=== PATIENT | female | born 1980 | race Caucasian/White ===

== ENCOUNTER → 2017-10-15 | Outpatient (CLI) | payer BC ==
--- NOTE | 2017-10-15 08:26 | MM ---
Reason for exam: additional evaluation requested from prior study. Last mammogram was performed 4 years ago. History: Family history of breast cancer in mother at age 46 and breast cancer in paternal grandmother at age 70. Benign US biopsy breast VAD LT of the left breast, October 07, 2013. Benign US biopsy breast VAD RT of the right breast, October 07, 2013. Benign US right guided VAD of the right breast, November 01, 2010. Excisional biopsy of the left breast, August 10, 2006. Benign ultrasound-guided core biopsy of the left breast, December 05, 2002. Core biopsy of the left breast. Took hormonal contraceptives for 4 years beginning at age 14. Physical Findings: Nurse Summary: 1cm nodule in the right breast at 12 o'clock (nurse flo). MG Diagnostic Mammo w CAD AYANNA Bilateral CC and MLO view(s) were taken. XCCL view(s) were taken of the right breast. Prior study comparison: October 07, 2013, right breast MG diagnostic mammo RT w CAD. October 07, 2013, left breast MG diagnostic mammo LT w CAD. The breast tissue is extremely dense which could obscure a lesion on mammography. No suspicious abnormality. Post biopsy change bilaterally. These results were verbally communicated with the patient and result sheet given to the patient on 10/15/17. ASSESSMENT: Benign, BI-RAD 2 RECOMMENDATION: Routine screening mammogram of both breasts in 1 year.
== END ==
LOC: RADMAMWWP 06:57
PROVIDERS: ATTEND Family Medicine
DX: N63.0 Unspecified lump in unspecified breast (principal)
CPT/HCPCS: 77066

== ENCOUNTER → 2018-03-18 | Outpatient (CLI) | payer BC | END | disposition home or self-care (01) | LOC: RADECHMAIN 12:19 | PROVIDERS: ATTEND Family Medicine | DX: I49.3 Ventricular premature depolarization (principal); R00.0 Tachycardia, unspecified | CPT/HCPCS: 93225; 93226 ==

== ENCOUNTER → 2018-12-10 | Outpatient (CLI) | payer BC ==
--- NOTE | 2018-12-11 10:39 | MM ---
Reason for exam: screening (asymptomatic). Last mammogram was performed 1 year and 2 months ago. History: Family history of breast cancer in mother at age 46 and breast cancer in paternal grandmother at age 70. Benign US biopsy breast VAD LT of the left breast, October 07, 2013. Benign US biopsy breast VAD RT of the right breast, October 07, 2013. Benign US right guided VAD of the right breast, November 01, 2010. Excisional biopsy of the left breast, August 10, 2006. Benign ultrasound-guided core biopsy of the left breast, December 05, 2002. Core biopsy of the left breast. Took hormonal contraceptives for 4 years beginning at age 14. Physical Findings: A clinical breast exam by your physician is recommended on an annual basis and results should be correlated with mammographic findings. MG 3D Screening Mammo W/Cad Bilateral CC and MLO view(s) were taken. Prior study comparison: October 15, 2017, bilateral MG diagnostic mammo w CAD AYANNA. October 07, 2013, right breast MG diagnostic mammo RT w CAD. The breast tissue is extremely dense which could obscure a lesion on mammography. No suspicious abnormality. Right medial asymmetry at middle depth appears as overlap on 3D. Right biopsy marker anterior to a stable mass in the central upper right breast at posterior depth. Second right biopsy marker upper inner quadrant. No significant changes when compared with prior studies. ASSESSMENT: Benign, BI-RAD 2 RECOMMENDATION: Routine screening mammogram of both breasts in 1 year.
== END | disposition home or self-care (01) ==
LOC: RADMAMWWP 06:51
PROVIDERS: ATTEND Family Medicine
DX: Z12.31 Encounter for screening mammogram for malignant neoplasm of breast (principal)
CPT/HCPCS: 77063; 77067

== ENCOUNTER → 2020-04-16 | Outpatient (CLI) | payer BC ==
--- NOTE | 2020-04-20 09:02 | MM ---
Reason for exam: screening (asymptomatic). Last mammogram was performed 1 year and 4 months ago. History: Family history of breast cancer in mother at age 46 and breast cancer in paternal grandmother at age 70. Benign US biopsy breast VAD LT of the left breast, October 07, 2013. Benign US biopsy breast VAD RT of the right breast, October 07, 2013. Benign US right guided VAD of the right breast, November 01, 2010. Excisional biopsy of the left breast, August 10, 2006. Benign ultrasound-guided core biopsy of the left breast, December 05, 2002. Core biopsy of the left breast. Took hormonal contraceptives for 4 years beginning at age 14. Physical Findings: A clinical breast exam by your physician is recommended on an annual basis and results should be correlated with mammographic findings. MG 3D Screening Mammo W/Cad Bilateral CC and MLO view(s) were taken. Prior study comparison: December 10, 2018, bilateral MG 3d screening mammo w/cad. October 15, 2017, bilateral MG diagnostic mammo w CAD AYNANA. The breast tissue is extremely dense which could obscure a lesion on mammography. Previous mammotome biopsy in the right breast x 2 and in the left breast x 1. Post excisional change anterior left breast. Lateral posterior left CC mass has a reinform appearance on 3D, suspect benign intramammary node. Precautionary 6 month follow up as it was not clearly seen previously. ASSESSMENT: Probably benign, BI-RAD 3 RECOMMENDATION: Follow-up diagnostic mammogram of the left breast in 6 months.
== END | disposition home or self-care (01) ==
LOC: RADMAMWWP 16:34
PROVIDERS: ATTEND Family Medicine
DX: Z12.31 Encounter for screening mammogram for malignant neoplasm of breast (principal)
CPT/HCPCS: 77063; 77067

== ENCOUNTER → 2021-06-15 | Outpatient (CLI) | payer OTHER ==
--- NOTE | 2021-06-15 10:20 | MM ---
Reason for exam: clinical finding. Last mammogram was performed 1 year and 2 months ago. History: Family history of breast cancer in mother at age 46 and breast cancer in paternal grandmother at age 70. Benign US biopsy breast VAD LT of the left breast, October 07, 2013. Benign US biopsy breast VAD RT of the right breast, October 07, 2013. Benign US right guided VAD of the right breast, November 01, 2010. Excisional biopsy of the left breast, August 10, 2006. Benign ultrasound-guided core biopsy of the left breast, December 05, 2002. Core biopsy of the left breast. Took hormonal contraceptives for 4 years beginning at age 14. Indicated problem(s): lump or thickening in both breasts. Physical Findings: A clinical breast exam by your physician is recommended on an annual basis and results should be correlated with mammographic findings. MG 3D Diag Mammo W/Cad AYANNA Bilateral CC and MLO view(s) were taken. Prior study comparison: April 16, 2020, bilateral MG 3d screening mammo w/cad. December 10, 2018, bilateral MG 3d screening mammo w/cad. The breast tissue is heterogeneously dense. This may lower the sensitivity of mammography. Previous mammotome biopsy in the right and left breast. There is no discrete abnormality. These results were verbally communicated with the patient and result sheet given to the patient on 06/15/21. ASSESSMENT: Benign, BI-RAD 2 RECOMMENDATION: Routine screening mammogram of both breasts in 1 year.
== END | disposition home or self-care (01) ==
LOC: RADMAMWWP 09:37
PROVIDERS: ATTEND Family Medicine
DX: N63.20 Unspecified lump in the left breast, unspecified quadrant (principal); Z80.3 Family history of malignant neoplasm of breast
CPT/HCPCS: 77066; G0279; 77062

== ENCOUNTER 2022-04-03 08:33 | Day surgery (SDC) | payer OTHER ==
[2022-03-30 11:06] VITALS: BMI 21.9
[2022-04-03] MEDS ORDERED: LACTATED RINGERS 1,000 ML IV SCH (08:54)
[2022-04-03] MEDS ORDERED: LIDOCAINE 1% (10MG/ML) FOR IV START INTRADERMA PRN (08:54)
[2022-04-03 08:59] VITALS: TEMP 97.9
[2022-04-03] MEDS ORDERED: LIDOCAINE 2% INJ 20 MG/ML (2 ML VIAL) ONE (09:54)
[2022-04-03] MEDS ORDERED: PROPOFOL 10 MG/ML 20 ML VIAL IV ONE (09:54)
--- NOTE | 2022-04-03 10:14 | P.PCN ---
Date of Procedure: 04/03/22 Procedure(s) Performed: BRIEF HISTORY: Patient is a 41-year-old, pleasant, white female scheduled for an upper endoscopy as a part of evaluation of long-standing history of GERD and throat irritation. She is scheduled on Prilosec 20 mg daily with occasional breakthrough symptoms.. PROCEDURE PERFORMED: Esophagogastroduodenoscopy with biopsy. PREOPERATIVE DIAGNOSIS: GERD/throat irritation. IV sedation per anesthesia. PROCEDURE: After informed consent was obtained, the patient was brought into the endoscopy unit. IV sedation was administered by Anesthesia under continuous monitoring. Initially the Olympus GIF-140 video endoscope was inserted into the mouth. Esophagus intubated without any difficulty. It was gradually advanced into the stomach and duodenum and carefully examined. The bulb and the second part of the duodenum appeared normal. The scope at this time was withdrawn to the stomach, adequately insufflated with air, and upon careful examination, mucosa of the antrum, body, cardia and the fundus appeared normal. The scope was then withdrawn into the esophagus. The GE junction was located at 39 cm from the incisors. Small sliding type hiatal hernia noted. The esophagus appeared normal. There were no erosions or ulcerations seen, biopsies were done from the mid and distal esophagus and the patient tolerated the procedure well. IMPRESSION: 1. Small hiatal hernia but no evidence of esophagitis or esophageal stricture. 2. Normal-appearing stomach and duodenum. RECOMMENDATIONS: The findings of this examination were discussed with the patient as well as a family. Follow with the biopsy results.. She was advised to change the Prilosec to 20 mg daily but taken half hour before dinnertime and follow antireflux measures.
[2022-04-03 10:57] VITALS: BP 115/80; PULSE 78; RESP 16
== END 2022-04-03 10:58 | disposition home or self-care (01) ==
LOC: ORWHC2ENDO 08:33
PROVIDERS: ATTEND Internal Medicine Gastroenterology
DX: K21.00 Gastro-esophageal reflux disease with esophagitis, without bleeding (principal); K44.9 Diaphragmatic hernia without obstruction or gangrene; J45.909 Unspecified asthma, uncomplicated; Z88.5 Allergy status to narcotic agent; Z79.899 Other long term (current) drug therapy; Z98.890 Other specified postprocedural states
CPT/HCPCS: 81025; 88305; 43239; J2704

== ENCOUNTER → 2023-01-17 | Outpatient (CLI) | payer SELFPAY ==
--- NOTE | 2023-01-17 14:28 | MM ---
Reason for Exam: Clinical finding. Last mammogram was performed 1 year(s) and 7 month(s) ago. Indicated Problems: Lump or thickening of the left side for 1 Month(s). Patient History: Menarche at age 11. First Full-Term at age 19. Hormonal Contraceptives for 4 years from age 14 until age 18. 08/10/2006, Excisional Biopsy on the Left side. Core Biopsy on the Left side. 10/07/2013, Benign Core Biopsy on the left side. 10/07/2013, Benign Core Biopsy on the right side. 11/01/2010, Benign Core Biopsy on the right side. 12/05/2002, Benign Ultrasound-Guided Core Biopsy on the left side. Paternal grandmother had breast cancer, age 70. Mother had breast cancer, age 46. Last menstrual period: 01/07/2023 Risk Values: Marlene 5 year model risk: 3.6%. NCI Lifetime model risk: 27.3%. Prior Study Comparison: 10/15/2017 Bilateral Diagnostic Mammogram, [facility]. 12/10/2018 Bilateral Screening Mammogram, [facility]. 04/16/2020 Bilateral Screening Mammogram, [facility]. 06/15/2021 Bilateral Diagnostic Mammogram, [facility]. Tissue Density: The breast tissue is heterogeneously dense. This may lower the sensitivity of mammography. Findings: Analyzed By CAD. There is increased density at the site of clinical concern upper outer left breast zone A. Ultrasound is recommended. Prior bilateral biopsies noted. No suspicious calcifications seen within either breast. Overall Assessment: Incomplete: need additional imaging evaluation, BI-RAD 0 Management: Diagnostic Breast Ultrasound of the left breast. . Results were given to the patient verbally at the time of exam. Patient should continue monthly self-breast exams. A clinical breast exam by your physician is recommended on an annual basis. This exam should not preclude additional follow-up of suspicious palpable abnormalities. Note on Marlene scores and lifetime risk: 1. A Marlene score greater than 3% is considered moderate risk. If this is the case, consider specialist referral to assess eligibility for a risk reducing agent. 2. If overall lifetime risk for the development of breast cancer is 20% or higher, the patient may qualify for future screening with alternating mammogram and breast MRI. Electronically signed and approved by: Yonis Andrade M.D. Radiologis
--- NOTE | 2023-01-17 15:40 | USB ---
Reason for Exam: Clinical finding. Patient History: Menarche at age 11. First Full-Term at age 19. Hormonal Contraceptives for 4 years from age 14 until age 18. 08/10/2006, Excisional Biopsy on the Left side. Core Biopsy on the Left side. 10/07/2013, Benign Core Biopsy on the left side. 10/07/2013, Benign Core Biopsy on the right side. 11/01/2010, Benign Core Biopsy on the right side. 12/05/2002, Benign Ultrasound-Guided Core Biopsy on the left side. Paternal grandmother had breast cancer, age 70. Mother had breast cancer, age 46. Risk Values: Marlene 5 year model risk: 3.6%. NCI Lifetime model risk: 27.3%. Technique: Method: Targeted. Prior Study Comparison: 12/10/2018 Bilateral Screening Mammogram, [facility]. 04/16/2020 Bilateral Screening Mammogram, [facility]. 06/15/2021 Bilateral Diagnostic Mammogram, [facility]. Findings: The upper inner quadrant of the left breast and the axilla of the left breast were scanned. Lobulated cystsnoted at the site of clinical concern left 11:00 breast 3 cm from the nipple. Cystsmeasures approximately 2.1 x 1.2 cm and 2.0 x 1.6 cm. Six-month follow-up advised.. Overall Assessment: Probably benign, BI-RAD 3 Management: Diagnostic Breast Ultrasound of the left breast in 6 months. A clinical breast exam by your physician is recommended on an annual basis and results should be correlated with mammographic findings. This exam should not preclude additional follow-up of suspicious palpable abnormalities. Results were given to the patient verbally at the time of exam. Electronically signed and approved by: Yonis Andrade M.D. Radiologis
== END | disposition home or self-care (01) ==
LOC: RADMAMWWP 13:35
PROVIDERS: ATTEND Family Medicine
DX: R92.333 Mammographic heterogeneous density, bilateral breasts (principal); N60.02 Solitary cyst of left breast; Z80.3 Family history of malignant neoplasm of breast
CPT/HCPCS: 77062; 77066

== ENCOUNTER → 2023-08-10 | Outpatient (CLI) | payer OTHER ==
--- NOTE | 2023-08-10 10:42 | USB ---
Reason for Exam: Follow-up at short interval from prior study. Patient History: Menarche at age 11. First Full-Term at age 19. Hormonal Contraceptives for 4 years from age 14 until age 18. 08/10/2006, Excisional Biopsy on the Left side. Core Biopsy on the Left side. 10/07/2013, Benign Core Biopsy on the left side. 10/07/2013, Benign Core Biopsy on the right side. 11/01/2010, Benign Core Biopsy on the right side. 12/05/2002, Benign Ultrasound-Guided Core Biopsy on the left side. Paternal grandmother had breast cancer, age 70. Mother had breast cancer, age 46. Risk Values: Marlene 5 year model risk: 3.9%. NCI Lifetime model risk: 26.9%. Technique: Method: Targeted. Prior Study Comparison: 04/16/2020 Bilateral Screening Mammogram, [facility]. 06/15/2021 Bilateral Diagnostic Mammogram, [facility]. 01/17/2023 Bilateral MG 3D diag mammo w/cad AYANNA, [facility]. Findings: The upper inner quadrant of the left breast, the axilla of the left breast and the retroareolar of the left breast were scanned. Technique utilized:US breast limited LT Image; Ultrasound imaging of: Area of concern, retroareolar region and axilla. Multiple anechoic cysts and hypoechoic lesion in between the cysts are not significantly changed from 01/17/2023. Some of these lesions are larger than they were on 10/15/2014. No suspicious mass. Overall Assessment: Benign, BI-RAD 2 Management: Screening Mammogram of both breasts in 5 months. A clinical breast exam by your physician is recommended on an annual basis and results should be correlated with mammographic findings. This exam should not preclude additional follow-up of suspicious palpable abnormalities. Results were given to the patient verbally at the time of exam. Electronically signed and approved by: Edgardo Duenas DO
== END | disposition home or self-care (01) ==
LOC: RADUSWWP 09:27
PROVIDERS: ATTEND Internal Medicine Gastroenterology
DX: N60.12 Diffuse cystic mastopathy of left breast (principal); N63.20 Unspecified lump in the left breast, unspecified quadrant; Z80.3 Family history of malignant neoplasm of breast

== ENCOUNTER → 2024-01-07 | Outpatient (CLI) | payer BC, OTHER ==
[2024-01-07 13:34] VITALS: BP 116/74; PULSE 81; RESP 16; TEMP 98.1
[2024-01-07] MEDS: SODIUM CHLORIDE 0.9% 500 ML 500 ML in EMPTY BAG 1 BAG IV PRN (13:44)
[2024-01-07] MEDS: SODIUM FERRIC GLUCONAT-SUCROSE 125 MG in SODIUM CHLORIDE 0.9% 100 ML IVPB NR (13:45)
== END ==
LOC: PROCWHC3 13:10
PROVIDERS: ATTEND Nurse Practitioner Family
DX: D50.9 Iron deficiency anemia, unspecified (principal)
CPT/HCPCS: 96365

== ENCOUNTER → 2024-02-28 | Outpatient (CLI) | payer BC ==
--- NOTE | 2024-02-29 14:59 | MM ---
Reason for Exam: Screening (asymptomatic). Last mammogram was performed 1 year(s) and 1 month(s) ago. Patient History: Menarche at age 11. First Full-Term at age 19. Premenopausal. Hormonal Contraceptives for 4 years from age 14 until age 18. 08/10/2006, Excisional Biopsy on the Left side. Core Biopsy on the Left side. 10/07/2013, Benign Core Biopsy on the left side. 10/07/2013, Benign Core Biopsy on the right side. 11/01/2010, Benign Core Biopsy on the right side. 12/05/2002, Benign Ultrasound-Guided Core Biopsy on the left side. Paternal grandmother had breast cancer, age 70. Mother had breast cancer, age 46. Last menstrual period: 02/23/2024 Risk Values: Marlene 5 year model risk: 3.9%. NCI Lifetime model risk: 26.9%. Prior Study Comparison: 10/07/2013 Left Diagnostic Mammogram, [facility]. 10/07/2013 Right Diagnostic Mammogram, [facility]. 10/15/2017 Bilateral Diagnostic Mammogram, [facility]. 12/10/2018 Bilateral Screening Mammogram, [facility]. 04/16/2020 Bilateral Screening Mammogram, [facility]. 06/15/2021 Bilateral Diagnostic Mammogram, [facility]. 01/17/2023 Bilateral MG 3D diag mammo w/cad AYANNA, [facility]. Tissue Density: The breasts are heterogeneously dense, which may obscure small masses. Findings: Analyzed By CAD. Left breast surgical clips. Bilateral breast biopsy clips. Right breast: There is no suspicious group of microcalcifications or new suspicious mass. Left breast: There is no suspicious group of microcalcifications or new suspicious mass. Overall Assessment: Negative, BI-RAD 1 Management: Screening Mammogram of both breasts in [address] [facility] will attempt to contact patient to return for supplemental views and ultrasound if indicated. Patient should continue monthly self-breast exams. A clinical breast exam by your physician is recommended on an annual basis. This exam should not preclude additional follow-up of suspicious palpable abnormalities. Note on Marlene scores and lifetime risk: 1. A Marlene score greater than 3% is considered moderate risk. If this is the case, consider specialist referral to assess eligibility for a risk reducing agent. 2. If overall lifetime risk for the development of breast cancer is 20% or higher, the patient may qualify for future screening with alternating mammogram and breast MRI. [facility], , 02/29/2024 2:56 PM. Electronically signed and approved by: Edgardo Duenas DO
== END | disposition home or self-care (01) ==
LOC: RADMAMWWP 12:43
PROVIDERS: ATTEND Family Medicine
DX: Z12.31 Encounter for screening mammogram for malignant neoplasm of breast (principal); Z80.3 Family history of malignant neoplasm of breast; R92.333 Mammographic heterogeneous density, bilateral breasts
CPT/HCPCS: 77063; 77067

== ENCOUNTER → 2024-06-20 | Outpatient (CLI) | payer BC | LOC: WWCWWP 12:57 | PROVIDERS: ATTEND Surgery | DX: Z53.9 Procedure and treatment not carried out, unspecified reason (principal) ==